=== PATIENT | female | born 1980 | race Caucasian/White ===

== ENCOUNTER 2020-10-04 22:31 | Emergency (ER) | payer OTHER ==
[2020-10-04 22:36] VITALS: TEMP 98.3; BMI 28.6
[2020-10-04 23:34] LABS: EPI CELLS >36 /uL (0-25.1); HYALINE CASTS 14 /uL (0-3.1); URINE APPEARANCE CLOUDY; URINE BACTERIA 1048 /uL (0-1359); URINE BILIRUBIN NEGATIVE (NEGATIVE); URINE COLOR YELLOW; URINE GLUCOSE (UA) NEGATIVE (NEGATIVE); URINE KETONE TRACE (NEGATIVE); URINE LEUK ESTERASE 1+ (NEGATIVE); URINE NITRITE NEGATIVE (NEGATIVE); URINE PROTEIN TRACE (NEGATIVE); URINE WBC 282 /uL (0-25.8)
[2020-10-05 00:34] LABS: HCG,QUALITATIVE URINE NEGATIVE
[2020-10-05 01:01] VITALS: BP 120/76; PULSE 59
== END 2020-10-05 01:00 | disposition home or self-care (01) ==
LOC: JER 22:31
DX: N10 Acute pyelonephritis (principal)
CPT/HCPCS: 81003; 84703; 87086; 99283-25

== ENCOUNTER 2020-10-25 01:24 | Emergency (ER) | payer OTHER ==
[2020-10-25 01:43] VITALS: BP 117/78; PULSE 81; TEMP 98.5; BMI 28.2
[2020-10-25 02:28] LABS: EPI CELLS >36 /uL (0-25.1); HYALINE CASTS 4 /uL (0-3.1); PH,URINE 6.5 (5.0-8.0); URINE APPEARANCE CLEAR; URINE BACTERIA 2289 /uL (0-1359); URINE BILIRUBIN NEGATIVE (NEGATIVE); URINE COLOR YELLOW; URINE GLUCOSE (UA) NEGATIVE (NEGATIVE); URINE KETONE NEGATIVE (NEGATIVE); URINE LEUK ESTERASE TRACE (NEGATIVE); URINE NITRITE NEGATIVE (NEGATIVE); URINE PROTEIN NEGATIVE (NEGATIVE); URINE RBC 10 /uL (0-23.9); URINE WBC 44 /uL (0-25.8)
== END 2020-10-25 05:48 | disposition home or self-care (01) ==
LOC: JER 01:24
DX: O23.40 Unspecified infection of urinary tract in pregnancy, unspecified trimester (principal); R10.9 Unspecified abdominal pain; Z3A.00 Weeks of gestation of pregnancy not specified
CPT/HCPCS: 36415; 76817-TC; 81003; 84702; 84703; 86850; 86900; 86901; 87086; 99284-25

== ENCOUNTER 2021-03-17 00:29 | Emergency (ER) | payer OTHER ==
[2021-03-17] MEDS ORDERED: ACETAMINOPHEN 1000 MG/100 ML VIAL (NON FORMULARY) IVPB ONE (01:17)
[2021-03-17] MEDS ORDERED: ACETAMINOPHEN INJECTION 100 ML IVPB ONE (01:23)
[2021-03-17] MEDS ORDERED: METOCLOPRAMIDE HCL INJECTION 10 MG/2 ML VIAL IVPUSH ONE (01:26)
[2021-03-17] MEDS ORDERED: SODIUM CHLORIDE 0.9% 500 ML INFUS.BAG IV ONE (01:26)
[2021-03-17] MEDS ORDERED: METOCLOPRAMIDE HCL INJECTION 10 MG/2 ML VIAL ONE (01:31)
[2021-03-17 01:54] VITALS: BMI 31.8
[2021-03-17 01:59] LABS: BASO % 0.9 % (0-2.0); EOS % 1.6 % (0-4.5); HEMATOCRIT 31.6 % (32.4-45.2); HEMOGLOBIN 10.2 GM/dL (10.7-15.3); LYMPH % 20.9 % (8-40); MCH 23.5 pg (25.7-33.7); MCHC 32.3 g/dl (32.0-36.0); MEAN CELL VOLUME 72.8 fl (80-96); MEAN PLT VOLUME 7.1 fl (7.5-11.1); MONO % 11.2 % (3.8-10.2); NEUT % 65.4 % (42.8-82.8); PLATELET COUNT 308 10^3/uL (134-434); RBC 4.34 M/mm3 (3.60-5.2); RDW 22.9 % (11.6-15.6); WHITE BLOOD COUNT 9.9 K/mm3 (4.0-10.0)
[2021-03-17 02:07] LABS: INR 0.89 (0.83-1.09); PROTHROMBIN TIME (PATIENT) 10.8 SEC (9.7-13.0)
[2021-03-17 02:10] LABS: ACTIVATED PTT 22.5 SECONDS (25.2-36.5)
[2021-03-17 02:36] LABS: ANISOCYTOSIS 2+; MACROCYTOSIS 0; OVALOCYTE 1+; PLATELET ESTIMATE NORMAL
[2021-03-17 02:42] LABS: BLOOD UREA NITROGEN 7.5 mg/dL (7-18)
[2021-03-17 02:45] LABS: CREATININE 0.5 mg/dL (0.55-1.3)
[2021-03-17 02:47] LABS: BILIRUBIN,TOTAL 0.3 mg/dL (0.2-1); TOT PROT 6.7 g/dl (6.4-8.2)
[2021-03-17 03:44] LABS: PH,URINE 5.5 (5.0-8.0); URINE APPEARANCE CLOUDY; URINE BILIRUBIN NEGATIVE (NEGATIVE); URINE COLOR YELLOW; URINE GLUCOSE (UA) NEGATIVE (NEGATIVE); URINE KETONE 1+ (NEGATIVE); URINE LEUK ESTERASE NEGATIVE (NEGATIVE); URINE NITRITE NEGATIVE (NEGATIVE); URINE PROTEIN TRACE (NEGATIVE)
[2021-03-17 05:17] VITALS: BP 109/65; PULSE 75; TEMP 97.8
== END 2021-03-17 06:15 | disposition home or self-care (01) ==
LOC: JER 00:29
PROC: 3E033NZ Introduction of Analgesics, Hypnotics, Sedatives into Peripheral Vein, Percutaneous Approach (ICD-10-PCS; principal; 2021-03-17)
PROC: 3E033GC Introduction of Other Therapeutic Substance into Peripheral Vein, Percutaneous Approach (ICD-10-PCS; 2021-03-17)
DX: R51.9 Headache, unspecified (principal); Z3A.24 24 weeks gestation of pregnancy
CPT/HCPCS: 36415; 80053; 81003; 85025; 85610; 85730; 87086; 87804; 99285-25; C9803; J0131; U0003; U0005

== ENCOUNTER 2021-06-27 08:00 | Inpatient (IN) | payer OTHER ==
[2021-06-27] MEDS ORDERED: OXYTOCIN 30 UNITS in 0.9% NS 30 UNIT/500 ML INFUS.BAG IVPB SCH (08:45)
[2021-06-27] MEDS ORDERED: ELECTROLYTE-148 SOLN 1,000 ML IV SCH (08:45)
[2021-06-27 09:01] VITALS: BMI 34.7
[2021-06-27] MEDS ORDERED: OXYTOCIN 30 UNITS in 0.9% NS 30 UNIT/500 ML INFUS.BAG IVPB ONE (09:10)
[2021-06-27 10:13] LABS: BASO % 0.3 % (0-2.0); EOS % 0.4 % (0-4.5); HEMATOCRIT 29.7 % (32.4-45.2); HEMOGLOBIN 9.7 GM/dL (10.7-15.3); LYMPH % 23.5 % (8-40); MCHC 32.6 g/dl (32.0-36.0); MEAN CELL VOLUME 70.7 fl (80-96); MEAN PLT VOLUME 7.2 fl (7.5-11.1); MONO % 7.5 % (3.8-10.2); NEUT % 68.3 % (42.8-82.8); PLATELET COUNT 303 10^3/uL (134-434); RDW 19.3 % (11.6-15.6); WHITE BLOOD COUNT 10.3 K/mm3 (4.0-10.0)
[2021-06-27 10:19] LABS: INR 0.81 (0.83-1.09)
[2021-06-27 10:22] LABS: ACTIVATED PTT 21.9 SECONDS (25.2-36.5)
[2021-06-27 10:34] LABS: CALCIUM 8.7 mg/dL (8.5-10.1)
[2021-06-27 10:35] LABS: BLOOD UREA NITROGEN 9.6 mg/dL (7-18)
[2021-06-27 10:38] LABS: CREATININE 0.6 mg/dL (0.55-1.3)
[2021-06-27] MEDS ORDERED: FENTANYL/BUPIVACAINE/NS/PF - PCEA - 50 ML DISP.SYRIN EP ONE (10:51)
[2021-06-27] MEDS ORDERED: PCA PUMP NR ONE (10:51)
[2021-06-27 11:28] LABS: HIV INTERPRETATION NEGATIVE (NEGATIVE)
[2021-06-27] MEDS ORDERED: OXYTOCIN 20 UNITS in 0.9% NS 20 UNIT/1,000 ML INFUS.BAG IV ONE ×2 (12:13→14:56)
[2021-06-27] MEDS ORDERED: NALOXONE HCL 0.4 MG/ML VIAL IVPUSH PRN (13:19)
[2021-06-27] MEDS ORDERED: FENTANYL/BUPIVACAINE/NS/PF - PCEA - 50 ML DISP.SYRIN EP SCH (13:30)
[2021-06-27] MEDS ORDERED: BENZOCAINE 28 GM HEMORRHOIDAL OINTMENT TP PRN (14:32)
[2021-06-27] MEDS ORDERED: BENZOCAINE 20% 57 GM BOTTLE TP PRN (14:32)
[2021-06-27] MEDS ORDERED: BISACODYL 10 MG SUPP.RECT RC PRN (14:32)
[2021-06-27] MEDS ORDERED: METHYLERGONOVINE MALEATE 0.2 MG/1 ML AMP IM PRN (14:32)
[2021-06-27] MEDS ORDERED: WITCH HAZEL 50% (TUCKS) 40 PAD/JAR PAD TP PRN (14:32)
[2021-06-27] MEDS ORDERED: OXYTOCIN 20 UNITS in 0.9% NS 20 UNIT/1,000 ML INFUS.BAG IV SCH (14:45)
[2021-06-27] MEDS ORDERED: IBUPROFEN 600 MG TABLET (FP) PO ONE (15:31)
[2021-06-27] MEDS: IBUPROFEN 600 MG TABLET (FP) PO PRN ×2 (17:38→21:58)
[2021-06-27] MEDS: ACETAMINOPHEN 325 MG TABLET (FP) PO PRN (19:20)
[2021-06-28] MEDS: IBUPROFEN 600 MG TABLET (FP) PO PRN ×4 (02:11→18:40)
[2021-06-28] MEDS: ACETAMINOPHEN 325 MG TABLET (FP) PO PRN (02:12)
[2021-06-28 08:51] LABS: BASO % 0.4 % (0-2.0); EOS % 1.6 % (0-4.5); HEMATOCRIT 27.9 % (32.4-45.2); HEMOGLOBIN 8.8 GM/dL (10.7-15.3); LYMPH % 34.6 % (8-40); MCH 22.9 pg (25.7-33.7); MCHC 31.7 g/dl (32.0-36.0); MEAN CELL VOLUME 72.1 fl (80-96); MEAN PLT VOLUME 7.4 fl (7.5-11.1); NEUT % 57.4 % (42.8-82.8); PLATELET COUNT 285 10^3/uL (134-434); RBC 3.86 M/mm3 (3.60-5.2); RDW 19.2 % (11.6-15.6); WHITE BLOOD COUNT 12.5 K/mm3 (4.0-10.0)
[2021-06-28] MEDS ORDERED: SENNOSIDES/DOCUSATE COMBO (SENNA PLUS) TABLET (UD) PO PRN (22:00)
[2021-06-29] MEDS: IBUPROFEN 600 MG TABLET (FP) PO PRN ×2 (03:00→10:08)
[2021-06-29 09:39] VITALS: BP 119/80; PULSE 82; TEMP 98.5
== END 2021-06-29 15:06 | disposition home or self-care (01) | DRG 560 ==
LOC: JLDR 08:00 → J3W 15:50
PROVIDERS: ADMIT Specialist; ATTEND Specialist
PROC: 10E0XZZ Delivery of Products of Conception, External Approach (ICD-10-PCS; principal; 2021-06-27)
DX: O80 Encounter for full-term uncomplicated delivery (principal); Z3A.39 39 weeks gestation of pregnancy; Z37.0 Single live birth
CPT/HCPCS: 36415; 59409; 80048; 85025; 85610; 85730; 86780; 86850; 86900; 86901; 87389